=== PATIENT | female | born 1970 | race Caucasian/White ===

== ENCOUNTER 2023-08-21 07:04 | Outpatient (CLI) | payer OTHER ==
[2023-08-21 08:53] LABS: HEMATOCRIT 43.3 % (36.0-45.00); HEMOGLOBIN 14.5 g/dL (12.0-15.00); MEAN CELL VOLUME 84.2 fL (80.00-100.00); MEAN CORPUSCULAR HEMOGLOBIN 28.2 pg (27.00-32.0); MEAN CORPUSCULAR HGB CONC 33.5 g/dl (32.0-36.0); PLATELET COUNT 171 K/uL (150-450); RED BLOOD COUNT 5.14 M/uL (4.00-6.00); RED CELL DISTRIBUTION WIDTH 13.4 % (11.5-14.5)
[2023-08-21 09:17] LABS: INR 0.98; PARTIAL THROMBOPLASTIN TIME 31.9 SECONDS (22.0-34.0); PROTHROMBIN TIME 10.3 SECONDS (9.0-11.5)
[2023-08-21 09:19] LABS: COL EPI 105 SECONDS (82-175)
[2023-08-21 09:33] LABS: % SATURACION 22.8 % (15-50); ALBUMIN 4.2 gm/dL (3.4-5.0); BILIRUBIN TOTAL 1.18 mg/dL (0.3-1.2); BILIRUBIN,CONJUGATED 0.2 mg/dL (0.0-0.2); BILIRUBIN,UNCONJUGATED 0.98 mg/dL (0.0-0.6); CHOL HDL RATIO 5.3 (0-5.0); FERRITIN 23.4 NG/ML (8-252); T4 FREE 1.03 NG/ML (0.76-1.46); TOTAL PROTEIN 7.1 gm/dL (6.4-8.2); TSH 2.05 uIU/mL (0.358-3.74)
[2023-08-21 09:50] LABS: FOLIC ACID 9.25 ng/ml (4.78-20)
[2023-08-21 09:59] LABS: CALCIUM 9.8 mg/dL (8.5-10.1); CREATININE SERUM 0.7 mg/dL (0.55-1.02); GFR 87.53; POTASSIUM 4.94 mEq/L (3.5-5.1)
[2023-08-21 10:00] LABS: GLOBULINA 2.9 G/DL (2.4-3.5)
[2023-08-21 11:25] LABS: MANUAL PLATELET COUNT 380
[2023-08-21 11:27] LABS: PLATELET ESTIMATE NORMAL (NORMAL)
[2023-08-22 09:11] LABS: CA 125 11.6 U/mL (0.0-38.1); CA 15-3 23.3 U/mL (0.0-25.0)
== END 2023-08-21 07:06 | disposition home or self-care (01) ==
LOC: LAB 07:04
PROVIDERS: ATTEND Internal Medicine Hematology & Oncology
DX: D68.01 Von Willebrand disease, type 1 (principal); C73 Malignant neoplasm of thyroid gland; D51.3 Other dietary vitamin B12 deficiency anemia; C53.9 Malignant neoplasm of cervix uteri, unspecified; D68.8 Other specified coagulation defects; C50.919 Malignant neoplasm of unspecified site of unspecified female breast; K76.89 Other specified diseases of liver; I10 Essential (primary) hypertension; R97.8 Other abnormal tumor markers; R97.0 Elevated carcinoembryonic antigen [CEA]; E71.2 Disorder of branched-chain amino-acid metabolism, unspecified; K76.2 Central hemorrhagic necrosis of liver; E04.9 Nontoxic goiter, unspecified; K76.1 Chronic passive congestion of liver

== ENCOUNTER 2023-11-08 08:07 | Outpatient (CLI) | payer OTHER ==
[2023-11-08 09:20] LABS: URINE APPEARANCE Clear; URINE BILIRRUBIN Negative (NEGATIVE); URINE BLOOD Negative; URINE COLOR Yellow; URINE GLUCOSE Negative (NEGATIVE); URINE LEUKOCYTE Moderate; URINE NITRATE Negative; URINE PROTEIN Negative (NEGATIVE); URINE UROBILINOGEN 0.2 E.U./dl
[2023-11-08 09:25] LABS: URINE BACTERIA 3299.8 uL (0.0-1933); URINE EPITHELIAL CELLS 54.7 uL (0.0-38.8); URINE WBC 132.1 uL (0.0-23.2)
[2023-11-08 09:27] LABS: HEMATOCRIT 43.6 % (36.0-45.00); HEMOGLOBIN 15.1 g/dL (12.0-15.00); MEAN CELL VOLUME 82.9 fL (80.00-100.00); MEAN CORPUSCULAR HEMOGLOBIN 28.8 pg (27.00-32.0); MEAN CORPUSCULAR HGB CONC 34.7 g/dl (32.0-36.0); PLATELET COUNT 184 K/uL (150-450); RED BLOOD COUNT 5.26 M/uL (4.00-6.00); RED CELL DISTRIBUTION WIDTH 12.8 % (11.5-14.5)
[2023-11-08 09:29] LABS: COL EPI 87 SECONDS (82-175)
[2023-11-08 09:30] LABS: URINE RBC 0.9 uL (0.0-20.8)
[2023-11-08 09:45] LABS: ALBUMIN 4.2 gm/dL (3.4-5.0); BILIRUBIN TOTAL 1.52 mg/dL (0.3-1.2); CREATININE SERUM 0.73 mg/dL (0.55-1.02); GFR 83.39; GLOBULINA 3.5 G/DL (2.4-3.5); POTASSIUM 4.84 mEq/L (3.5-5.1); TOTAL PROTEIN 7.7 gm/dL (6.4-8.2)
[2023-11-08 09:51] LABS: INR 0.98; PARTIAL THROMBOPLASTIN TIME 31.7 SECONDS (22.0-34.0); PROTHROMBIN TIME 10.3 SECONDS (9.0-11.5)
[2023-11-10 08:39] LABS: MANUAL PLATELET COUNT 288
[2023-11-10 08:40] LABS: PLATELET ESTIMATE NORMAL (NORMAL)
[2023-11-10 13:06] LABS: FACTOR VIII ACTIVITY 83 % (56-140); VON WILLERBRAND ACTIVITY 45 % (50-200); VON WILLERBRAND ANTIGEN 75 % (50-200)
== END 2023-11-08 08:19 | disposition home or self-care (01) ==
LOC: LAB 08:07
PROVIDERS: ATTEND Obstetrics & Gynecology Gynecologic Oncology
DX: D50.8 Other iron deficiency anemias (principal); R79.9 Abnormal finding of blood chemistry, unspecified; I10 Essential (primary) hypertension; R74.02 Elevation of levels of lactic acid dehydrogenase [LDH]; K76.89 Other specified diseases of liver; D68.8 Other specified coagulation defects; D69.1 Qualitative platelet defects; R87.613 High grade squamous intraepithelial lesion on cytologic smear of cervix (HGSIL); Z01.818 Encounter for other preprocedural examination; Z20.822 Contact with and (suspected) exposure to COVID-19; D64.9 Anemia, unspecified; N39.0 Urinary tract infection, site not specified

== ENCOUNTER 2023-11-16 12:15 | Inpatient (IN) | payer OTHER ==
[~2023-11-16] VITALS: Ht 160 cm; Wt 68.9 kg
[2023-11-16] MEDS ORDERED: GRALISE600 MG PO (14:41)
[2023-11-16] MEDS ORDERED: LEVO-T125 MCG PO (14:41)
[2023-11-16] MEDS ORDERED: NEURIN PO (14:42)
[2023-11-22] MEDS ORDERED: ACETAMINOPHEN 500 MG GEL..CAP PO PRN (18:30)
[2023-11-22] MEDS ORDERED: DESMOPRESSIN ACETATE 4 MCG/ML AMPUL IV SCH (19:00)
[2023-11-22] MEDS ORDERED: NA PHOS,M-B/NA PHOS,DI-BA 1 BOTTLE ENEMA RECTAL SCH (19:00)
[2023-11-22] MEDS ORDERED: FAMOTIDINE/PF 20 MG/2 ML VIAL IV SCH (21:00)
[2023-11-23] MEDS ORDERED: LEVOTHYROXINE SODIUM 125 MCG TABLET PO SCH (06:00)
[2023-11-23] MEDS ORDERED: DESMOPRESSIN ACETATE 4 MCG/ML AMPUL IV SCH (06:00)
[2023-11-23] MEDS ORDERED: CEFOXITIN SODIUM 2,000 MG VIAL IV STA (08:49)
[2023-11-23] MEDS ORDERED: POVIDONE-IODINE 118 ML BOTT TOP ONE (14:30)
[2023-11-23] MEDS ORDERED: CEFOXITIN SODIUM 2,000 MG in 0.9 % SODIUM CHLORIDE 100 ML IV ONE (14:30)
[2023-11-23] MEDS ORDERED: RINGERS SOLUTION,LACTATED 1,000 ML IV SCH (15:30)
[2023-11-23] MEDS ORDERED: ONDANSETRON HCL 2 MG/ML VIAL IV PRN (15:30)
[2023-11-23] MEDS ORDERED: MORPHINE SULFATE 4 MG/ML CARTRIDGE IV PRN (15:45)
[2023-11-23] MEDS ORDERED: VISTASEAL DUAL APPICATOR 1 EACH APPL TOP ONE (16:15)
[2023-11-23] MEDS ORDERED: THROMBIN,HU/FIBRINOGEN/CALCIUM 10 ML SYRINGE TOP ONE (16:15)
[2023-11-23] MEDS ORDERED: KETOROLAC TROMETHAMINE 30 MG VIAL IV SCH (17:00)
[2023-11-23] MEDS ORDERED: CEFOXITIN SODIUM 2,000 MG VIAL IV SCH (17:00)
[2023-11-23] MEDS ORDERED: SIMETHICONE 125 MG CAPSULE PO SCH (17:00)
[2023-11-23] MEDS ORDERED: KETOROLAC TROMETHAMINE 30 MG VIAL ONE (17:06)
[2023-11-23] MEDS ORDERED: CEFOXITIN SODIUM 2,000 MG VIAL IV ONE (17:09)
[2023-11-23] MEDS ORDERED: DOCUSATE SODIUM 100MG CAP PO SCH (21:00)
[2023-11-23] MEDS ORDERED: FAMOTIDINE/PF 20 MG/2 ML VIAL IV SCH (21:00)
[2023-11-23 21:43] LABS: HEMATOCRIT 39.6 % (36.0-45.00); HEMOGLOBIN 13.4 g/dL (12.0-15.00); MEAN CELL VOLUME 82.1 fL (80.00-100.00); MEAN CORPUSCULAR HEMOGLOBIN 27.9 pg (27.00-32.0); MEAN CORPUSCULAR HGB CONC 33.9 g/dl (32.0-36.0); PLATELET COUNT 177 K/uL (150-450); RED BLOOD COUNT 4.82 M/uL (4.00-6.00); RED CELL DISTRIBUTION WIDTH 13.1 % (11.5-14.5)
[2023-11-23 22:02] LABS: CALCIUM 8.9 mg/dL (8.5-10.1); CREATININE SERUM 0.75 mg/dL (0.55-1.02); GFR 80.83; POTASSIUM 4.11 mEq/L (3.5-5.1)
[2023-11-24 04:21] LABS: HEMATOCRIT 35.1 % (36.0-45.00); MEAN CELL VOLUME 82.4 fL (80.00-100.00); MEAN CORPUSCULAR HEMOGLOBIN 28.2 pg (27.00-32.0); MEAN CORPUSCULAR HGB CONC 34.2 g/dl (32.0-36.0); PLATELET COUNT 171 K/uL (150-450); RED BLOOD COUNT 4.26 M/uL (4.00-6.00); RED CELL DISTRIBUTION WIDTH 13.2 % (11.5-14.5)
[2023-11-24 05:00] LABS: CALCIUM 8.5 mg/dL (8.5-10.1); CREATININE SERUM 0.74 mg/dL (0.55-1.02); GFR 82.09; POTASSIUM 4.18 mEq/L (3.5-5.1)
[2023-11-24] MEDS ORDERED: OxyCODONE HCL/APAP UD (PERCOCET) PO SCH ×2 (09:00)
[2023-11-24] MEDS ORDERED: HYDRODIURIL12.5 MG (09:24)
[2023-11-24] MEDS ORDERED: DESMOPRESS10 MCG/0.1 (09:25)
[2023-11-24] MEDS ORDERED: LEVOXYL125 MCG (09:25)
[2023-11-24] MEDS ORDERED: DESMOPRESSIN ACETATE 40 MCG/10 ML ML IV SCH (14:00)
[2023-11-25 11:06] LABS: HEMOGLOBIN 11.2 g/dL (12.0-15.00); MEAN CELL VOLUME 83.8 fL (80.00-100.00); MEAN CORPUSCULAR HEMOGLOBIN 28.5 pg (27.00-32.0); RED BLOOD COUNT 3.93 M/uL (4.00-6.00)
[2023-11-25 11:32] LABS: ALBUMIN 2.8 gm/dL (3.4-5.0); BILIRUBIN TOTAL 0.98 mg/dL (0.3-1.2); CALCIUM 8.1 mg/dL (8.5-10.1); CREATININE SERUM 0.59 mg/dL (0.55-1.02); GFR 106.62; GLOBULINA 2.6 G/DL (2.4-3.5); POTASSIUM 3.66 mEq/L (3.5-5.1); TOTAL PROTEIN 5.4 gm/dL (6.4-8.2)
[2023-11-25 12:25] LABS: PLATELET COUNT 118 K/uL (150-450)
[2023-11-25] MEDS ORDERED: MAGNESIUM SULFATE IN WATER 2 GM/50 ML PIGGYBAG IV ONE (15:45)
[2023-11-25] MEDS ORDERED: OxyCODONE HCL/APAP UD (PERCOCET) PO PRN (16:00)
[2023-11-25] MEDS ORDERED: IBUprofen 800 MG TABLET PO SCH (17:00)
[2023-11-25 22:38] LABS: ALBUMIN 3.1 gm/dL (3.4-5.0); BILIRUBIN TOTAL 1.08 mg/dL (0.3-1.2); CALCIUM 8.2 mg/dL (8.5-10.1); CREATININE SERUM 0.64 mg/dL (0.55-1.02); GFR 97.07; GLOBULINA 2.6 G/DL (2.4-3.5); POTASSIUM 4.54 mEq/L (3.5-5.1); TOTAL PROTEIN 5.7 gm/dL (6.4-8.2)
[2023-11-26 07:30] LABS: HEMATOCRIT 33.1 % (36.0-45.00); HEMOGLOBIN 11.5 g/dL (12.0-15.00); MEAN CELL VOLUME 81.6 fL (80.00-100.00); MEAN CORPUSCULAR HEMOGLOBIN 28.4 pg (27.00-32.0); MEAN CORPUSCULAR HGB CONC 34.8 g/dl (32.0-36.0); RED BLOOD COUNT 4.05 M/uL (4.00-6.00); RED CELL DISTRIBUTION WIDTH 12.8 % (11.5-14.5)
[2023-11-26 07:32] LABS: PLATELET COUNT 127 K/uL (150-450)
[2023-11-26 07:58] LABS: CALCIUM 8.3 mg/dL (8.5-10.1); CREATININE SERUM 0.52 mg/dL (0.55-1.02); GFR 123.35; POTASSIUM 3.74 mEq/L (3.5-5.1)
[2023-11-26] MEDS ORDERED: 0.9 % SODIUM CHLORIDE 500 ML IV SCH (10:30)
[2023-11-26 12:27] LABS: ABG PH 7.461 (7.35-7.45); ABG PO2 72.4 mmHg (80-100); ABG pCO2 37.3 mmHg (35-45); BASE EXCESS 2.3 mmol/l; SaO2 95.4 %; Tco2 27.1 mmol/l; allen test SATISFACTORY; o2 21 %; puncture site RADIAL RIGHT
[2023-11-26] MEDS ORDERED: ONDANSETRON HCL 2 MG/ML VIAL IV PRN (12:30)
[2023-11-26] MEDS ORDERED: BUTALB/ACETAMINOPHEN/CAFFEINE 1 TAB TABLET PO PRN (13:30)
[2023-11-26] MEDS ORDERED: BUTALB/ACETAMINOPHEN/CAFFEINE 1 TAB TABLET PO STA (13:31)
[2023-11-26] MEDS ORDERED: HYDROCORTISONE SODIUM SUCC/PF 250 MG VIAL IV STA (14:20)
[2023-11-26] MEDS ORDERED: ENOXAPARIN SODIUM 40 MG/0.4 ML SYRINGE SUBCUTANEO STA (14:22)
[2023-11-26] MEDS ORDERED: HYDROCORTISONE SODIUM SUCC/PF 250 MG VIAL IV SCH (14:45)
[2023-11-26] MEDS ORDERED: DIPHENHYDRAMINE HCL 50 MG/ML VIAL 1ML IV SCH (14:45)
[2023-11-26] MEDS ORDERED: PANTOPRAZOLE SODIUM 40 MG/VIAL VIAL IV SCH (17:00)
[2023-11-27 07:21] LABS: HEMATOCRIT 36.3 % (36.0-45.00); HEMOGLOBIN 12.8 g/dL (12.0-15.00); MEAN CELL VOLUME 80.7 fL (80.00-100.00); MEAN CORPUSCULAR HEMOGLOBIN 28.5 pg (27.00-32.0); MEAN CORPUSCULAR HGB CONC 35.3 g/dl (32.0-36.0); PLATELET COUNT 168 K/uL (150-450); RED CELL DISTRIBUTION WIDTH 12.5 % (11.5-14.5)
[2023-11-27 08:24] LABS: ALBUMIN 3.4 gm/dL (3.4-5.0); BILIRUBIN TOTAL 1.54 mg/dL (0.3-1.2); CALCIUM 8.9 mg/dL (8.5-10.1); CREATININE SERUM 0.52 mg/dL (0.55-1.02); GFR 123.35; GLOBULINA 3.1 G/DL (2.4-3.5); POTASSIUM 3.91 mEq/L (3.5-5.1); TOTAL PROTEIN 6.5 gm/dL (6.4-8.2)
== END 2023-11-27 14:05 | disposition home or self-care (01) | DRG 740 ==
LOC: OB/GYN 11-22 15:30 → SURG 11-23 10:30 → OB/GYN 11-26 15:28
PROVIDERS: Obstetrics & Gynecology; Specialist; ADMIT Obstetrics & Gynecology Gynecologic Oncology; ATTEND Obstetrics & Gynecology Gynecologic Oncology
PROC: 0UT94ZZ Resection of Uterus, Percutaneous Endoscopic Approach (ICD-10-PCS; principal; 2023-11-22)
PROC: 0UT74ZZ Resection of Bilateral Fallopian Tubes, Percutaneous Endoscopic Approach (ICD-10-PCS; 2023-11-22)
PROC: 0USG4ZZ Reposition Vagina, Percutaneous Endoscopic Approach (ICD-10-PCS; 2023-11-22)
PROC: 8E0W4CZ Robotic Assisted Procedure of Trunk Region, Percutaneous Endoscopic Approach (ICD-10-PCS; 2023-11-22)
PROC: BB24YZZ Computerized Tomography (CT Scan) of Bilateral Lungs using Other Contrast (ICD-10-PCS; 2023-11-26)
PROC: B54DZZZ Ultrasonography of Bilateral Lower Extremity Veins (ICD-10-PCS; 2023-11-26)
DX: D06.7 Carcinoma in situ of other parts of cervix (principal); D62 Acute posthemorrhagic anemia; D68.01 Von Willebrand disease, type 1; D25.1 Intramural leiomyoma of uterus; D25.2 Subserosal leiomyoma of uterus; N72 Inflammatory disease of cervix uteri; Z20.822 Contact with and (suspected) exposure to COVID-19; E80.4 Gilbert syndrome; D69.6 Thrombocytopenia, unspecified; E06.3 Autoimmune thyroiditis
CPT/HCPCS: 58571; 57425; S2900

== ENCOUNTER 2023-12-05 15:08 | Emergency (ER) | payer OTHER ==
[~2023-12-05] VITALS: Ht 160 cm; Wt 68.9 kg
[~2023-12-05 15:08] MED LIST: DESMOPRESS10 MCG/0.1; GRALISE600 MG PO; HYDRODIURIL12.5 MG; LEVO-T125 MCG PO; LEVOXYL125 MCG; NEURIN PO
[2023-12-05 17:16] LABS: HEMATOCRIT 45.5 % (36.0-45.00); HEMOGLOBIN 16.1 g/dL (12.0-15.00); MEAN CELL VOLUME 82.4 fL (80.00-100.00); MEAN CORPUSCULAR HEMOGLOBIN 29.1 pg (27.00-32.0); MEAN CORPUSCULAR HGB CONC 35.3 g/dl (32.0-36.0); PLATELET COUNT 251 K/uL (150-450); RED BLOOD COUNT 5.53 M/uL (4.00-6.00); RED CELL DISTRIBUTION WIDTH 12.8 % (11.5-14.5)
[2023-12-05 17:43] LABS: URINE APPEARANCE Cloudy; URINE BILIRRUBIN Negative (NEGATIVE); URINE BLOOD Negative; URINE COLOR Yellow; URINE GLUCOSE Negative (NEGATIVE); URINE KETONE Negative (NEGATIVE); URINE LEUKOCYTE Negative; URINE NITRATE Negative; URINE PROTEIN Negative (NEGATIVE); URINE UROBILINOGEN 0.2 E.U./dl
[2023-12-05 17:43] LABS: CALCIUM 10.1 mg/dL (8.5-10.1); CREATININE SERUM 0.82 mg/dL (0.55-1.02); GFR 72.92; POTASSIUM 4.68 mEq/L (3.5-5.1)
[2023-12-05 17:44] LABS: URINE BACTERIA 74.3 uL (0.0-1933); URINE EPITHELIAL CELLS 2.9 uL (0.0-38.8); URINE RBC 7.4 uL (0.0-20.8); URINE WBC 2.7 uL (0.0-23.2)
== END 2023-12-05 18:49 | disposition home or self-care (01) ==
LOC: ER 15:09
PROVIDERS: Emergency Medicine
DX: L76.32 Postprocedural hematoma of skin and subcutaneous tissue following other procedure (principal); Z86.79 Personal history of other diseases of the circulatory system; Z91.041 Radiographic dye allergy status

== ENCOUNTER 2023-12-13 09:39 | Outpatient (CLI) | payer OTHER | END 2023-12-13 09:40 | disposition home or self-care (01) | LOC: NUCLEAR 09:39 | PROVIDERS: ATTEND Obstetrics & Gynecology Gynecologic Oncology | DX: I87.2 Venous insufficiency (chronic) (peripheral) (principal) ==

== ENCOUNTER → 2024-02-19 08:06 | Outpatient (CLI) | payer OTHER ==
[2024-02-19 09:02] LABS: HEMATOCRIT 41.6 % (36.0-45.00); HEMOGLOBIN 14.5 g/dL (12.0-15.00); MEAN CELL VOLUME 84.1 fL (80.00-100.00); MEAN CORPUSCULAR HEMOGLOBIN 29.3 pg (27.00-32.0); MEAN CORPUSCULAR HGB CONC 34.9 g/dl (32.0-36.0); PLATELET COUNT 167 K/uL (150-450); RED BLOOD COUNT 4.95 M/uL (4.00-6.00); RED CELL DISTRIBUTION WIDTH 13.4 % (11.5-14.5)
[2024-02-19 09:19] LABS: ERYTHROCYTE SEDIMENTATION RATE 7 mm/hr
[2024-02-19 09:43] LABS: URINE APPEARANCE Clear; URINE BILIRRUBIN Negative (NEGATIVE); URINE BLOOD Negative; URINE COLOR Yellow; URINE GLUCOSE Negative (NEGATIVE); URINE KETONE Negative (NEGATIVE); URINE LEUKOCYTE Trace; URINE NITRATE Negative; URINE PROTEIN Negative (NEGATIVE); URINE UROBILINOGEN 0.2 E.U./dl
[2024-02-19 09:44] LABS: URINE BACTERIA 187.7 uL (0.0-1933); URINE EPITHELIAL CELLS 9.2 uL (0.0-38.8); URINE WBC 12.1 uL (0.0-23.2)
[2024-02-19 09:52] LABS: URINE RBC 0.9 uL (0.0-20.8)
[2024-02-19 10:09] LABS: ALBUMIN 4.4 gm/dL (3.4-5.0); ALKALINE PHOSPHATASE 92 U/L (50-136); ALT/SGPT 32 U/L (12-78); ANION GAP 9 (10.0-20.0); AST/SGOT 19 U/L (15-37); BILIRUBIN TOTAL 1.14 mg/dL (0.3-1.2); BLOOD UREA NITROGEN 10 mg/dL (7-18); BUN CREA RATIO 16 (7.0-25.0); CALCIUM 9.3 mg/dL (8.5-10.1); CARBON DIOXIDE 29 mEq/L (21-32); CHLORIDE 102 mmol/L (98-107); CHOL HDL RATIO 5.1 (0-5.0); CHOLESTEROL 225 mg/dL (0-200); CREATININE SERUM 0.64 mg/dL (0.55-1.02); FREE TRIODOTIRONINE 2.49 pg/ml (2.18-3.98); GFR 97.07; GLOBULINA 3.3 G/DL (2.4-3.5); GLUCOSE FASTING 104 mg/dL (65-100); HDL 44 mg/dl (40-60); OSMOLALITY SERUM 271 MOSM/KG (275-295); POTASSIUM 4.02 mEq/L (3.5-5.1); SODIUM 136 mmol/L (136-145); T4 FREE 1.04 NG/ML (0.76-1.46); TOTAL PROTEIN 7.7 gm/dL (6.4-8.2); TSH 0.615 uIU/mL (0.358-3.74)
[2024-02-19 10:17] LABS: C-REACTIVE PROTEIN < 0.29 MG/DL (0.00-0.29); LDL 121 mg/dl (0-130); TRIGLYCERIDES 300 mg/dL (0-150); VLDL 60 (0-39)
[2024-02-19 12:04] LABS: FOLIC ACID 12.48 ng/ml (4.78-20); VITAMIN D3 25 HYDROXY 49.76 ng/ml (30-120)
== END | disposition home or self-care (01) ==
LOC: LAB 08:06
PROVIDERS: ATTEND Internal Medicine Endocrinology, Diabetes & Metabolism
DX: E28.1 Androgen excess (principal); E04.9 Nontoxic goiter, unspecified; R79.82 Elevated C-reactive protein (CRP); R20.0 Anesthesia of skin; M32.9 Systemic lupus erythematosus, unspecified; D82.4 Hyperimmunoglobulin E [IgE] syndrome; N36.9 Urethral disorder, unspecified; I10 Essential (primary) hypertension

== ENCOUNTER → 2024-07-03 09:21 | Outpatient (CLI) | payer OTHER ==
[2024-07-03 10:29] LABS: URINE APPEARANCE Clear; URINE BILIRRUBIN Negative (NEGATIVE); URINE BLOOD Negative; URINE COLOR Yellow; URINE GLUCOSE Negative (NEGATIVE); URINE KETONE Negative (NEGATIVE); URINE LEUKOCYTE Negative; URINE NITRATE Negative; URINE PROTEIN Negative (NEGATIVE); URINE UROBILINOGEN 0.2 E.U./dl
[2024-07-03 10:33] LABS: URINE BACTERIA 584.8 uL (0.0-1933); URINE EPITHELIAL CELLS 17.6 uL (0.0-38.8); URINE RBC 2.5 uL (0.0-20.8)
[2024-07-03 10:47] LABS: HEMOGLOBIN 14.5 g/dL (12.0-15.00); MEAN CELL VOLUME 82.9 fL (80.00-100.00); MEAN CORPUSCULAR HEMOGLOBIN 28.5 pg (27.00-32.0); MEAN CORPUSCULAR HGB CONC 34.4 g/dl (32.0-36.0); PLATELET COUNT 211 K/uL (150-450); RED BLOOD COUNT 5.07 M/uL (4.00-6.00); RED CELL DISTRIBUTION WIDTH 13.1 % (11.5-14.5)
[2024-07-03 10:57] LABS: INR 0.97; PARTIAL THROMBOPLASTIN TIME 31.4 SECONDS (22.0-34.0); PROTHROMBIN TIME 10.6 SECONDS (9.0-11.5)
[2024-07-03 11:06] LABS: COL EPI 99 SECONDS (82-175)
[2024-07-03 11:25] LABS: POTASSIUM 4.57 mEq/L (3.5-5.1)
[2024-07-03 11:35] LABS: ALKALINE PHOSPHATASE 108 U/L (50-136); ALT/SGPT 35 U/L (12-78); ANION GAP 4 (10.0-20.0); AST/SGOT 25 U/L (15-37); BILIRUBIN TOTAL 0.76 mg/dL (0.3-1.2); BLOOD UREA NITROGEN 12 mg/dL (7-18); BUN CREA RATIO 17 (7.0-25.0); CALCIUM 9.4 mg/dL (8.5-10.1); CARBON DIOXIDE 35 mEq/L (21-32); CHLORIDE 104 mmol/L (98-107); CHOL HDL RATIO 5.2 (0-5.0); CHOLESTEROL 214 mg/dL (0-200); CREATININE SERUM 0.71 mg/dL (0.55-1.02); FERRITIN 55.1 NG/ML (8-252); GFR 85.78; GLOBULINA 3.3 G/DL (2.4-3.5); GLUCOSE FASTING 100 mg/dL (65-100); HDL 41 mg/dl (40-60); LDH 153 U/L (84-246); OSMOLALITY SERUM 277 MOSM/KG (275-295); PHOSPHOKINASE CREATININE 44 U/L (26-192); POTASSIUM 4.47 mEq/L (3.5-5.1); SODIUM 139 mmol/L (136-145); T4 FREE 1.18 NG/ML (0.76-1.46); TOTAL IRON BINDING CAPACITY 353 ug/dl (250-450); TOTAL PROTEIN 7.3 gm/dL (6.4-8.2); TSH 0.666 uIU/mL (0.358-3.74)
[2024-07-03 11:37] LABS: C-REACTIVE PROTEIN < 0.29 MG/DL (0.00-0.29); LDL 107 mg/dl (0-130); VLDL 65 (0-39)
[2024-07-03 11:38] LABS: TRIGLYCERIDES 328 mg/dL (0-150)
[2024-07-04 13:49] LABS: MANUAL PLATELET COUNT 256
[2024-07-04 13:59] LABS: PLATELET ESTIMATE NORMAL (NORMAL)
== END | disposition home or self-care (01) ==
LOC: LAB 09:21
PROVIDERS: ATTEND Internal Medicine Hematology & Oncology
DX: I50.22 Chronic systolic (congestive) heart failure (principal); D68.01 Von Willebrand disease, type 1; C73 Malignant neoplasm of thyroid gland; K29.70 Gastritis, unspecified, without bleeding; D51.3 Other dietary vitamin B12 deficiency anemia; C53.9 Malignant neoplasm of cervix uteri, unspecified; I74.2 Embolism and thrombosis of arteries of the upper extremities; D50.8 Other iron deficiency anemias; R79.9 Abnormal finding of blood chemistry, unspecified; I10 Essential (primary) hypertension; R74.02 Elevation of levels of lactic acid dehydrogenase [LDH]; K76.89 Other specified diseases of liver; D68.8 Other specified coagulation defects; I11.0 Hypertensive heart disease with heart failure; N39.0 Urinary tract infection, site not specified; E04.9 Nontoxic goiter, unspecified; E78.2 Mixed hyperlipidemia; E11.9 Type 2 diabetes mellitus without complications; N36.1 Urethral diverticulum; K76.0 Fatty (change of) liver, not elsewhere classified